=== PATIENT | male | born 1995 | race Caucasian/White ===

== ENCOUNTER 2018-05-19 00:11 | Emergency (ER) | payer OTHER ==
[2018-05-19 00:33] VITALS: BP 150/84; PULSE 71; RESP 18; TEMP 98.2
[2018-05-19] MEDS ORDERED: CARBAMIDE PEROXIDE 6.5% DROPS 15 ML BTL BOTH EARS STA (00:55)
--- NOTE | 2018-05-19 01:20 | ED ---
ENT HPI - General Chief complaint: ENT Stated complaint: Ear ache Time Seen by Provider: 05/19/18 00:45 Source: patient Mode of arrival: ambulatory Limitations: no limitations - History of Present Illness Initial comments: 22-year-old male patient presents to the emergency department today for evaluation of left ear pain. Patient states the pain started a couple of hours ago. Patient states is a sharp stabbing type pain. Denies any drainage from the ear. States he does wear earplugs at work every day. Denies any fever or chills. States he does have some general nasal congestion due to ALLERGIES but denies any recent upper respiratory illness. Denies any dizziness or headache. Patient denies any recent rash, shortness breath, chest pain, abdominal pain, nausea, vomiting, diarrhea, constipation, back pain, numbness, tingling, weakness, hematuria, dysuria, urinary urgency, urinary frequency, visual changes, or any other complaints. - Related Data Allergies Allergy/AdvReac Type Severity Reaction Status Date / Time No Known Allergies Allergy Verified 05/19/18 00:33 Review of Systems ROS Statement: Those systems with pertinent positive or pertinent negative responses have been documented in the HPI. ROS Other: All systems not noted in ROS Statement are negative. Past Medical History Past Medical History: No Reported History History of Any Multi-Drug Resistant Organisms: None Reported Past Surgical History: Appendectomy, Bowel Resection Past Psychological History: ADD/ADHD, Bipolar Smoking Status: Current every day smoker Past Alcohol Use History: None Reported Past Drug Use History: None Reported General Exam Limitations: no limitations General appearance: alert, in no apparent distress, other (Physical well- developed, well-nourished adult male patient in no acute distress. Vital signs upon presentation are temperature 98.2F, pulse 71, respirations 18, blood pressure 150/84, pulse ox 100% on room air.) Eye exam: Present: normal appearance, PERRL, EOMI. Absent: scleral icterus, conjunctival injection, periorbital swelling ENT exam: Present: normal exam, normal oropharynx, mucous membranes moist. Absent: TM's normal bilaterally (Bilateral cerumen impaction) Respiratory exam: Present: normal lung sounds bilaterally. Absent: respiratory distress, wheezes, rales, rhonchi, stridor Cardiovascular Exam: Present: regular rate, normal rhythm, normal heart sounds. Absent: systolic murmur, diastolic murmur, rubs, gallop, clicks Neurological exam: Present: alert, oriented X3, CN II-XII intact Psychiatric exam: Present: normal affect, normal mood Skin exam: Present: warm, dry, intact, normal color. Absent: rash Course Vital Signs 05/19/18 00:31 Temperature 98.2 F Pulse Rate 71 Respiratory 18 Rate Blood Pressure 150/84 O2 Sat by Pulse 100 Oximetry Medical Decision Making - Medical Decision Making 22-year-old male patient presents to the emergency department today for evaluation of left ear pain. Physical examination did reveal bilateral cerumen impaction. Did administer Debrox drops and attempt flushing. Patient is unable to tolerate complete evacuation of the cerumen but he did have improvement of symptoms. He'll be discharged home with the Debrox to continue administration. He is instructed to follow up with his primary care physician for further evaluation. Return parameters discussed in detail, thye verbalize understanding and agree with this plan. Disposition Clinical Impression: Bilateral impacted cerumen Disposition: HOME SELF-CARE Condition: Good Instructions (If sedation given, give patient instructions): Cerumen Impaction (ED) Additional Instructions: Follow-up with her primary care physician for recheck in 1-2 days. Use 6 drops to the left ear once daily to loosen the wax. Return immediately for any new, worsening, or concerning symptoms Is patient prescribed a controlled substance at d/c from ED?: No Referrals: None,Stated [Primary Care Provider] - 1-2 days Time of Disposition: 02:04
== END 2018-05-19 02:13 | disposition home or self-care (01) ==
LOC: EC 00:11
DX: H61.23 Impacted cerumen, bilateral (principal); R09.81 Nasal congestion; F17.200 Nicotine dependence, unspecified, uncomplicated
CPT/HCPCS: 99282